=== PATIENT | male | born 1970 | race Caucasian/White ===

== ENCOUNTER 2023-01-16 13:19 | Outpatient (CLI) | payer OTHER, SELFPAY ==
--- NOTE | ~2023-01-16 | XR_ITS ---
XR knee LT min 4V DATE: 01/16/2023 15:51 INDICATION: Fall 3 days ago. Medial knee swelling, left knee pain. TECHNIQUE: 4 views of left knee COMPARISON: None FINDINGS: Mild osteoarthritis. No fracture or dislocation or joint effusion. No periosteal reaction o r bone destruction. No radiopaque intra-articular loose body or chondrocalcinosis. IMPRESSION: Mild osteoarthritis Reviewed, dictated and finalized at location L. IMPRESSION: Mild osteoarthritis
--- NOTE | ~2023-01-16 | US_ITS ---
EXAMINATION: US venous doppler [facility] DATE: 01/16/2023 14:22 INDICATION: Left lower limb pain and swelling. TECHNIQUE: Grayscale ultrasound images without and with compression and Doppler ultrasound images of the left lower extremity veins were obtained. COMPARISON: Ultrasound 08/13/2005 FINDINGS: The visualized portions of left common femoral vein, profunda (deep) femoral vein, femoral vein, popl iteal vein, and greater saphenous vein outflow are patent. The calf veins are obscured by edema and b praveen habitus. IMPRESSION: 1. No deep venous thrombosis. Calf veins obscured by edema and body habitus. Reviewed, dictated and finalized at location A.
--- NOTE | ~2023-01-16 | XR_ITS ---
XR tibia fibula LT 2V DATE: 01/16/2023 15:51 INDICATION: Left knee pain following fall 3 days ago TECHNIQUE: AP and lateral views COMPARISON: None FINDINGS: No fracture or dislocation of the tibia or fibula. No periosteal reaction or bone destructi on. Normal alignment at the knee and ankle joints. IMPRESSION: No fracture or dislocation Reviewed, dictated and finalized at location L. IMPRESSION: No fracture or dislocation
== END 2023-01-16 13:20 | disposition home or self-care (01) ==
LOC: ANHIMG 13:23
PROVIDERS: PCP Emergency Medicine; Visit Provider Emergency Medicine
DX: M79.89 Other specified soft tissue disorders (principal); M17.12 Unilateral primary osteoarthritis, left knee
CPT/HCPCS: 73564; 73590; 93971

== ENCOUNTER 2023-06-13 13:24 | Outpatient (CLI) | payer OTHER, SELFPAY ==
--- NOTE | ~2023-06-13 | US_ITS ---
EXAMINATION:US venous doppler LE RT INDICATION:Right lower extremity pain TECHNIQUE: Multiple grayscale, color flow and Doppler images of the right lower extremity deep venous systems were obtained and reviewed. COMPARISON:No prior studies for comparison. FINDINGS: The common femoral, superficial femoral and popliteal veins demonstrate normal respiratory variation, augmentation and compressibility. Color flow is also seen within the posterior tibial, pe roneal, greater saphenous and profunda veins. There is a Borges's cyst measuring 3.4 x 1.9 x 0.9 cm. IMPRESSION: 1: No lower extremity deep venous thrombosis. Reviewed, dictated and finalized at location B.
== END 2023-06-13 13:25 | disposition home or self-care (01) ==
PROVIDERS: PCP Emergency Medicine; Visit Provider Emergency Medicine
DX: M79.661 Pain in right lower leg (principal)
CPT/HCPCS: 93971

== ENCOUNTER → 2023-08-12 10:54 | Outpatient (CLI) | payer OTHER, SELFPAY ==
--- NOTE | ~2023-08-12 | MR_ITS ---
EXAMINATION: MR knee RT wo con DATE: 08/12/2023 12:15 INDICATION: Right knee pain. TECHNIQUE: Magnetic resonance imaging (MRI) of the right knee was performed without intravenous contr ast. Sequences included axial PD-weighted FS FSE, coronal PD-weighted FSE and PD-weighted FS FSE, sag ittal PD-weighted FSE, and sagittal T2-weighted FS FSE. COMPARISON: None. FINDINGS: Medial compartment: There is a complex tear involving the body and posterior horn of the medial meniscus. There is a subc hondral fracture of medial femoral condyle with involvement of the articular surface in an area measu ring 2.5 x 1.8 cm with low signal fracture line and edema-like marrow signal intensity. There is cart ilage surface irregularity of tibial condyle. There is partial-thickness cartilage loss of femoral co ndyle involving the central articular surface. Lateral compartment: The lateral meniscus is normal. Lateral compartment cartilage is normal. Patellofemoral compartment: There is full-thickness cartilage loss of patellar medial and lateral facets with mild subchondral ed jeremias-like signal intensity. There is deep partial thickness cartilage loss of central and lateral troc hlea with mild subchondral edema-like marrow signal intensity. Ligaments and tendons: Anterior and posterior cruciate ligaments are normal. There are changes of prior sprains of medial co llateral ligament and fibular collateral ligament characterized by increased signal intensity. There is mild patellar tendinopathy. Fluid: There is a small knee joint effusion. There is a small Borges's cyst. There is moderate prepatellar an d superficial infrapatellar bursitis. IMPRESSION: 1. Subchondral insufficiency fracture of medial femoral condyle. 2. 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 3. Complex tear of medial meniscus. 4. Small knee joint effusion. 5. Small Borges's cyst. Reviewed, dictated and finalized at location E. IMPRESSION: 1. Subchondral insufficiency fracture of medial femoral condyle. 2. Mild chondrosis of medial compartment and severe chondrosis of patellofemora l compartment. 3. Complex tear of medial meniscus. 4. Small knee joint effusion. 5. Small Borges's cyst.
== END ==
PROVIDERS: PCP Emergency Medicine; Visit Provider Orthopaedic Surgery
DX: M25.461 Effusion, right knee (principal); M71.21 Synovial cyst of popliteal space [Baker], right knee; S83.231A Complex tear of medial meniscus, current injury, right knee, initial encounter; X58.XXXA Exposure to other specified factors, initial encounter
CPT/HCPCS: 73721

== ENCOUNTER 2024-04-02 09:33 | Emergency (ER) | payer OTHER, SELFPAY ==
[2024-04-02 09:39] VITALS: BP 191/87; PULSE 80; RESP 16; TEMP 37; O2SAT 96
--- NOTE | 2024-04-02 09:51 | ED.SKABFB ---
HPI - Skin/Abscess/Foreign Bdy General Chief complaint: Skin/Abscess/Foreign Body Stated complaint: Rash on stomach Time Seen by Provider: 04/02/24 09:51 Source: patient, RN notes reviewed and old records reviewed Mode of arrival: ambulatory Limitations: no limitations History of Present Illness HPI narrative: 54-year-old male to [facility] for complaint of red, burning rash to entire abdomen for 2 days. Patient denies any use new products on his body or in his home, exposure to new pets or environmental irritants, pertinent medical history, cough, shortness of breath. Patient hypertensive in triage. Patient advised to follow-up primary care provider regarding blood pressure. Patient verbalized understanding. Patient in mild distress discomfort. Patient in no acute distress Related Data Home Medications Medication Instructions Recorded Confirmed amlodipine 10 mg tablet 10 mg PO DAILY 04/02/24 04/02/24 carvedilol 25 mg tablet 25 mg PO BID 04/02/24 04/02/24 Allergies Allergy/AdvReac Type Severity Reaction Status Date / Time Sulfa (Sulfonamide Allergy Intermediate Rash Verified 04/02/24 09:48 Antibiotics) Review of Systems Review of Systems: All systems reviewed & are unremarkable except as noted in HPI and below Constitutional: Constitutional: Reports no additional constitutional complaints Eyes: Eyes: Reports no additional eye complaints ENT: Reports system reviewed and no additional complaints, except as documented Cardiovascular: Cardiovascular: Reports no additional cardiovascular complaints, Denies chest pain and Denies dyspnea Respiratory: Respiratory: Reports no additional respiratory complaints, Denies cough and Denies dyspnea Musculoskeletal: Musculoskeletal: Reports no additional musculoskeletal complaints Integumentary/Breasts: Skin/Breast: Reports pruritus, Reports rash ( abdomen 2 days) and Reports skin swelling Neurologic: Reports system reviewed and no additional complaints, except as documented Psychiatric: Psychiatric: Reports no additional psychiatric complaints PMFSH Comments At the time of my signature, I reviewed and agree with the nursing past medical, surgical, social, and family history. There is no relevant family history pertinent to the patient complaint. Exam Const: General: cooperative, no acute distress, alert, ill appearing chronically, uncomfortable, well groomed, well nourished and obese Nutritional Appearance: well nourished Orientation/consciousness: patient oriented x3 Limitations: no limitations HENMT: Head: normal to inspection Ears: external ears normal Face/Nose/Sinus: Normal external nose present, Normal nares present, normal facial exam, No erythema and No edema Face and sinus: normal facial exam, no erythema and no edema Mouth: Yes Normal oral and palatal mucosa present Eyes: General: appearance normal, both eyes and all related structures Neck: Neck: normal visual inspection, full ROM and no meningeal signs Lymphatic: no lymphadenopathy noted and no lymphedema noted Chest: Chest palpation & inspection: normal inspection of the chest Resp: Effort & Inspection: normal respiratory effort and able to speak in complete sentences Auscultation: clear to auscultation bilaterally Cardio: Jugular venous distension: no JVD Rate: regular rate Rhythm: regular rhythm GI: Other: colostomy bag present Back/Spine/Pelvis: Cervical Spine: cervical ROM normal Skin: General skin exam: erythema and rashes Other: raised, erythematous rash to entire abdomen. Neuro: General: patient oriented x3, gait normal, moves all extremities and no meningeal signs Speech: normal speech Gait exam (Neuro): Normal gait present Extrem: General: full ROM Psych: Appearance: grossly normal and well kempt Course Course Emergency Course: Some parts of this dictation were generated by voice recognition software and may contain typographical and/or grammati
== END 2024-04-02 10:10 | disposition home or self-care (01) ==
PROVIDERS: Emergency Provider Nurse Practitioner Family; PCP Emergency Medicine
DX: L03.311 Cellulitis of abdominal wall (principal); Z93.3 Colostomy status; I10 Essential (primary) hypertension
CPT/HCPCS: 99213; G0463